=== PATIENT | female | born 1985 | race Caucasian/White ===

== ENCOUNTER 2020-03-06 14:56 | Emergency (ER) | payer MEDICAID ==
[~2020-03-06] VITALS: Ht 160 cm; Wt 70.0 kg
[2020-03-06] MEDS ORDERED: ACETAMINOPHEN 325MG TABLET PO PRN (15:45)
[2020-03-06 15:55] LABS: CLARITY URINE CLEAR (CLEAR); COLOR URINE YELLOW (YELLOW); KETONES URINE NEGATIVE (NEGATIVE); LEUKOCYTE ESTERASE URINE 1+ (NEGATIVE); NITRITE URINE NEGATIVE (NEGATIVE); OCCULT BLOOD URINE TRACE (NEGATIVE); PH URINE 5.5 (4.5-8.0); PROTEIN URINE NEGATIVE (NEGATIVE); SPECIFIC GRAVITY URINE 1.022 (1.005-1.030); UROBILINOGEN URINE 0.2 E.U./dL (0.2-1.0)
[2020-03-06 16:27] LABS: BASOPHILS % 0.5 % (0.0-2.0); CHLORIDE 107 mEq/L (98-107); EOSINOPHILS % 2.5 % (0.0-5.0); HEMATOCRIT. 42.4 % (36.0-48.0); HEMOGLOBIN. 14.9 g/dL (12.0-16.0); LYMPHOCYTES % 34.8 % (20.0-50.0); MEAN CORPUSCULAR HEMOGLOBIN 35.2 pg (28.0-32.0); MEAN CORPUSCULAR VOLUME 100.3 fL (81.0-99.0); MEAN PLATELET VOLUME 8.5 fl (7.4-10.4); MONOCYTES % 9.1 % (2.0-8.0); NEUTROPHILS % 53.1 % (40.0-76.0); PLATELET 236 x1000/uL (130-400); RED BLOOD CELL COUNT 4.23 mill/uL (4.2-5.4); RED CELL DISTRIBUTION WIDTH 12.1 % (11.6-14.6)
[2020-03-06 16:38] LABS: B-HCG QUANTITATIVE 162 mIU/mL (<3)
[2020-03-06 18:30] VITALS: BP 130/60
== END 2020-03-06 18:30 | disposition home or self-care (01) ==
LOC: ER 15:16
DX: O23.41 Unspecified infection of urinary tract in pregnancy, first trimester (principal); O34.81 Maternal care for other abnormalities of pelvic organs, first trimester; N83.201 Unspecified ovarian cyst, right side; Z3A.01 Less than 8 weeks gestation of pregnancy; Z98.890 Other specified postprocedural states
CPT/HCPCS: 36415; 76830; 76856; 80053; 81003; 81025; 84702; 85025; 99284

== ENCOUNTER 2020-03-14 17:17 | Emergency (ER) | payer MEDICAID ==
[~2020-03-14] VITALS: Ht 160 cm; Wt 68.0 kg
[2020-03-14 18:06] LABS: BASOPHILS % 0.6 % (0.0-2.0); EOSINOPHILS % 1.6 % (0.0-5.0); HEMOGLOBIN. 14.3 g/dL (12.0-16.0); LYMPHOCYTES % 17.9 % (20.0-50.0); MEAN CORPUSCULAR HEMOGLOBIN 35.2 pg (28.0-32.0); MEAN CORPUSCULAR VOLUME 98.5 fL (81.0-99.0); MEAN PLATELET VOLUME 8.3 fl (7.4-10.4); NEUTROPHILS % 70.9 % (40.0-76.0); PLATELET 249 x1000/uL (130-400); RED BLOOD CELL COUNT 4.06 mill/uL (4.2-5.4)
[2020-03-14 18:12] LABS: CHLORIDE 109 mEq/L (98-107)
[2020-03-14] MEDS ORDERED: ACETAMINOPHEN 650MG/20.3ML UDC PO ONE (18:15)
[2020-03-14] MEDS ORDERED: ONDANSETRON 4MG ODT PO ONE (18:15)
[2020-03-14 18:16] LABS: CLARITY URINE CLEAR (CLEAR); COLOR URINE YELLOW (YELLOW); KETONES URINE TRACE (NEGATIVE); LEUKOCYTE ESTERASE URINE 1+ (NEGATIVE); NITRITE URINE NEGATIVE (NEGATIVE); OCCULT BLOOD URINE NEGATIVE (NEGATIVE); PH URINE 6.5 (4.5-8.0); PROTEIN URINE NEGATIVE (NEGATIVE); SPECIFIC GRAVITY URINE 1.027 (1.005-1.030)
[2020-03-14 18:36] LABS: B-HCG QUANTITATIVE 5316 mIU/mL (<3)
[2020-03-14 21:23] VITALS: BP 125/70
== END 2020-03-14 21:25 | disposition home or self-care (01) ==
LOC: ER 17:17
DX: O20.0 Threatened abortion (principal); Z3A.01 Less than 8 weeks gestation of pregnancy; Z98.890 Other specified postprocedural states
CPT/HCPCS: 36415; 76801; 76817; 80053; 81003; 81025; 84702; 85025; 86850; 86900; 86901; 99284; Q0162

== ENCOUNTER 2020-03-19 13:56 | Emergency (ER) | payer MEDICAID ==
[~2020-03-19] VITALS: Ht 160 cm; Wt 70.0 kg
[2020-03-19] MEDS ORDERED: ACETAMINOPHEN 325MG TABLET PO ONE (16:00)
[2020-03-19 17:24] LABS: CLARITY URINE CLEAR (CLEAR); COLOR URINE YELLOW (YELLOW); KETONES URINE NEGATIVE (NEGATIVE); LEUKOCYTE ESTERASE URINE 2+ (NEGATIVE); NITRITE URINE NEGATIVE (NEGATIVE); OCCULT BLOOD URINE NEGATIVE (NEGATIVE); PROTEIN URINE NEGATIVE (NEGATIVE); SPECIFIC GRAVITY URINE 1.018 (1.005-1.030)
[2020-03-19 17:30] VITALS: BP 109/68
[2020-03-19] MEDS ORDERED: CEPHALEXIN 250MG CAPSULE PO ONE (17:45)
== END 2020-03-19 18:29 | disposition home or self-care (01) ==
LOC: ER 13:56
DX: O23.31 Infections of other parts of urinary tract in pregnancy, first trimester (principal); Z3A.01 Less than 8 weeks gestation of pregnancy
CPT/HCPCS: 81003; 81025; 99283

== ENCOUNTER 2020-04-22 10:19 | Emergency (ER) | payer MEDICAID ==
[~2020-04-22] VITALS: Ht 160 cm; Wt 73.0 kg
[2020-04-22] MEDS ORDERED: PREN-183 PO (10:34)
[2020-04-22 12:07] LABS: BASOPHILS % 0.5 % (0.0-2.0); EOSINOPHILS % 1.8 % (0.0-5.0); HEMOGLOBIN. 12.7 g/dL (12.0-16.0); LYMPHOCYTES % 17.8 % (20.0-50.0); MEAN CORPUSCULAR HEMOGLOBIN 35.1 pg (28.0-32.0); MEAN CORPUSCULAR VOLUME 99.2 fL (81.0-99.0); MEAN PLATELET VOLUME 7.7 fl (7.4-10.4); MONOCYTES % 7.1 % (2.0-8.0); NEUTROPHILS % 72.8 % (40.0-76.0); PLATELET 250 x1000/uL (130-400); RED BLOOD CELL COUNT 3.63 mill/uL (4.2-5.4); RED CELL DISTRIBUTION WIDTH 11.8 % (11.6-14.6)
[2020-04-22 12:15] LABS: CHLORIDE 107 mEq/L (98-107)
[2020-04-22 12:40] LABS: B-HCG QUANTITATIVE 38347 mIU/mL (<3)
[2020-04-22 15:24] VITALS: BP 105/72
== END 2020-04-22 15:10 | disposition home or self-care (01) ==
LOC: ER 10:19
DX: O20.9 Hemorrhage in early pregnancy, unspecified (principal); Z3A.11 11 weeks gestation of pregnancy
CPT/HCPCS: 36415; 76801; 80053; 81025; 84702; 85025; 86850; 86900; 99284

== ENCOUNTER 2020-09-14 23:53 | Observation (INO) | payer MEDICAID ==
[~2020-09-14] VITALS: Ht 160 cm; Wt 84.8 kg
[~2020-09-14 23:53] MED LIST: PREN-183 PO
[2020-09-15] MEDS ORDERED: CALC600T12 MT (00:39)
[2020-09-15] MEDS: DEXT 5%/LACTATED RINGERS 1,000 ML IV SCH ×2 (00:47→02:30)
[2020-09-15] MEDS ORDERED: CEFAZOLIN 2,000 MG in DEXT 5% WATER 100 ML IV SCH (01:00)
== END 2020-09-15 02:45 | disposition home or self-care (01) ==
LOC: 8 EST LDRP 23:53
PROVIDERS: ADMIT Obstetrics & Gynecology; ATTEND Obstetrics & Gynecology
DX: O26.893 Other specified pregnancy related conditions, third trimester (principal); R10.30 Lower abdominal pain, unspecified; Z3A.32 32 weeks gestation of pregnancy
CPT/HCPCS: 59025; 76805; 76818; 96360; 96361; 96365; G0378; J0690; J7060; 99281

== ENCOUNTER 2023-12-20 13:05 | Emergency (ER) | payer MEDICAID ==
[~2023-12-20] VITALS: Ht 162.6 cm; Wt 72.0 kg
[~2023-12-20 13:05] MED LIST changes: +CALC-1139 MT
[2023-12-20 13:19] VITALS: O2SAT 100
[2023-12-20 17:26] VITALS: BP 146/96; PULSE 79; RESP 18; TEMP 98.5
== END 2023-12-20 17:28 | disposition home or self-care (01) ==
LOC: ER 14:05
DX: O26.891 Other specified pregnancy related conditions, first trimester (principal); F12.10 Cannabis abuse, uncomplicated; Z3A.01 Less than 8 weeks gestation of pregnancy; Z98.890 Other specified postprocedural states
CPT/HCPCS: 36415; 76801; 84702; 99284

== ENCOUNTER 2024-01-12 17:26 | Emergency (ER) | payer OTHER ==
[~2024-01-12] VITALS: Ht 157.5 cm; Wt 86.2 kg
[2024-01-12 17:49] VITALS: BP 130/71; PULSE 88; RESP 16; TEMP 98.2; O2SAT 100
[2024-01-12 19:05] LABS: HEMATOCRIT 37.5 % (36.0-48.0); MEAN CORPUSCULAR HEMOGLOBIN 34.8 pg (28.0-32.0); MEAN CORPUSCULAR HGB CONC 34.7 g/dL (31.0-37.0); MEAN CORPUSCULAR VOLUME 100.4 fL (81.0-99.0); PLATELET 337 x1000/uL (130-400); RED BLOOD CELL COUNT 3.74 mill/uL (4.2-5.4); RED CELL DISTRIBUTION WIDTH 12.2 % (11.6-14.6); WHITE BLOOD COUNT 12.7 x1000/uL (4.5-11.0)
[2024-01-12 19:13] LABS: HCG SCREEN POSITIVE
[2024-01-12 19:19] LABS: ALANINE AMINOTRANSFERASE 10 IU/L (10-49); ALBUMIN 4.5 g/dL (3.2-4.8); ASPARTATE AMINOTRANSFERASE 13 IU/L (<34); BILIRUBIN TOTAL 0.3 mg/dL (0.1-1.0); CARBON DIOXIDE 26 mEq/L (21-32); CHLORIDE 105 mEq/L (98-107); CREATININE 0.8 mg/dL (0.6-1.0); GLUCOSE 100 mg/dL (70-105); POTASSIUM 3.7 mEq/L (3.5-5.1); PROTEIN TOTAL 7.7 g/dL (6.0-8.3); SODIUM 138 mEq/L (136-145); UREA NITROGEN BLOOD 11 mg/dL (9-23)
== END 2024-01-12 22:02 | disposition home or self-care (01) ==
LOC: ER 17:26
DX: O36.4XX0 Maternal care for intrauterine death, not applicable or unspecified (principal); F12.10 Cannabis abuse, uncomplicated; Z3A.01 Less than 8 weeks gestation of pregnancy; Z98.890 Other specified postprocedural states
CPT/HCPCS: 80053; 84703; 85027; 86850; 86900; 86901; 36415; 76801; 76817; 99284; Z7610